=== PATIENT | female | born 1990 | race Caucasian/White ===

== ENCOUNTER 2022-12-14 21:26 | Emergency (ER) | payer OTHER ==
[~2022-12-14] VITALS: Ht 154.9 cm; Wt 62.1 kg
[2022-12-14 22:26] VITALS: BP 107/68
--- NOTE | 2022-12-14 23:51 | NUR ---
PT TO BED 4
--- NOTE | 2022-12-14 23:54 | NUR ---
PT AMBULATE TO ROOM 4
[2022-12-15] MEDS ORDERED: ACETAMINOPHEN 325 MG TAB PO ONE (00:25)
[2022-12-15] MEDS ORDERED: KETOROLAC 15 MG/ML VIAL IM ONE (00:25)
[2022-12-15] MEDS ORDERED: ACET-10509 PO (01:07)
[2022-12-15] MEDS ORDERED: IBUP-2213 PO (01:07)
--- NOTE | 2022-12-15 01:32 | NUR ---
Patient discharged with v/s stable. Written and verbal after care instructions given and explained. Patient verbalized understanding. Ambulatory with steady gait. All questions addressed prior to discharge. Advised to follow up with PMD.
== END 2022-12-15 01:32 | disposition home or self-care (01) ==
LOC: MED 21:26
DX: K08.89 Other specified disorders of teeth and supporting structures (principal); Z79.1 Long term (current) use of non-steroidal anti-inflammatories (NSAID); Z79.899 Other long term (current) drug therapy
CPT/HCPCS: 81025; 96372; 99283; J1885

== ENCOUNTER 2023-11-05 14:42 | Emergency (ER) | payer OTHER ==
[~2023-11-05] VITALS: Ht 154.9 cm; Wt 63.5 kg
[~2023-11-05 14:42] MED LIST: ACET-10509 PO; IBUP-2213 PO
[2023-11-05 14:47] VITALS: BP 107/71; PULSE 89; RESP 18; TEMP 98.1; O2SAT 99
[2023-11-05 15:15] LABS: BASOPHILS # (AUTO) 0.1 K/uL (0.00-0.22); BASOPHILS % (AUTO) 0.7 % (0.0-2.0); EOSINOPHILS # (AUTO) 0.1 K/uL (0-0.4); EOSINOPHILS % (AUTO) 1.1 % (0.0-4.0); HEMATOCRIT 36.6 % (36-48); HEMOGLOBIN 12.5 g/dL (12.0-16.0); LYMPHOCYTES # (AUTO) 2.4 K/uL (2.5-16.5); LYMPHOCYTES % (AUTO) 27.1 % (20.5-51.1); MEAN CORPUSCULAR HEMOGLOBIN 30 pg (27-31); MEAN CORPUSCULAR HGB CONC 34 g/dL (33-37); MEAN CORPUSCULAR VOLUME 87.5 fL (80-94); MONOCYTES # (AUTO) 0.5 K/uL (0.8-1.0); MONOCYTES % (AUTO) 5.6 % (1.7-9.3); NEUTROPHILS # (AUTO) 5.9 K/uL (1.8-7.7); NEUTROPHILS % (AUTO) 65.5 % (42.2-75.2); PLATELET COUNT (AUTO) 302 K/uL (140-450); RED BLOOD CELL COUNT(AUTO) 4.19 MIL/uL (4.20-5.40); RED CELL DISTRIBUTION WIDTH 13.5 % (11.6-13.7)
[2023-11-05 15:19] VITALS: O2SAT 99
[2023-11-05] MEDS ORDERED: IBUP-2213 PO (16:31)
[2023-11-05] MEDS ORDERED: MEDR10TA PO (16:31)
[2023-11-05 16:32] VITALS: BP 107/71; PULSE 89; RESP 18; TEMP 98.1; O2SAT 99
== END 2023-11-05 16:32 | disposition home or self-care (01) ==
LOC: MED 14:42
DX: N93.8 Other specified abnormal uterine and vaginal bleeding (principal); Z79.899 Other long term (current) drug therapy
CPT/HCPCS: 36415; 81002; 81025; 85025; 99283